=== PATIENT | female | born 1980 | race Caucasian/White ===

== ENCOUNTER 2016-09-03 01:06 | Emergency (ER) | payer MEDICAID ==
[~2016-09-03] VITALS: Ht 152.4 cm; Wt 72.6 kg
[~2016-09-03 01:06] MED LIST: PREN-96 PO
[2016-09-03] MEDS ORDERED: LORazepam 0.5 MG TAB ONE (01:13)
[2016-09-03] MEDS ORDERED: ONDANSETRON ODT 4 MG TAB PO ONE ×2 (01:17→01:30)
[2016-09-03] MEDS ORDERED: LORazepam 0.5 MG TAB PO ONE (01:30)
[2016-09-03 02:15] VITALS: BP 139/76
== END 2016-09-03 05:41 | disposition home or self-care (01) ==
LOC: EDBD 01:06 → ER 01:11
DX: F41.9 Anxiety disorder, unspecified (principal); Z91.14 Patient's other noncompliance with medication regimen; Z88.1 Allergy status to other antibiotic agents
CPT/HCPCS: 99284; Q0162

== ENCOUNTER 2018-01-19 21:52 | Emergency (ER) | payer MEDICAID ==
[~2018-01-19] VITALS: Ht 157.5 cm; Wt 50.8 kg
[2018-01-19 22:22] VITALS: BP 110/88
[2018-01-19 22:23] LABS: Urine Bacteria FEW /hpf (None Seen); Urine Blood Negative /uL (Negative); Urine Mucus FEW (None Seen); Urine Specific Gravity 1.007 (1.001-1.035); Urine WBC <1 /hpf (0 - 5)
[2018-01-20 00:01] LABS: Urine Pregnacy Test Negative (Negative)
[2018-01-20 00:10] LABS: Amphetamine Screen, Urine NEGATIVE (NEGATIVE); Barbiturate Scree,Urine NEGATIVE (NEGATIVE); Benzodiazephine Screen, Urine POSITIVE (NEGATIVE); Cannabinoid Screen, Urine NEGATIVE (NEGATIVE); Cocaine Screen, Urine NEGATIVE (NEGATIVE); Opiate Scree,Urine NEGATIVE (NEGATIVE); Phencyclidine Screen, Urine NEGATIVE (NEGATIVE)
== END 2018-01-19 23:47 | disposition home or self-care (01) ==
LOC: EDBD 21:52 → ER 21:52
DX: F41.0 Panic disorder [episodic paroxysmal anxiety] (principal); Z88.0 Allergy status to penicillin
CPT/HCPCS: 80307; 81001; 81025

== ENCOUNTER 2018-03-24 13:39 | Emergency (ER) | payer MEDICAID, OTHER ==
[~2018-03-24] VITALS: Ht 157.5 cm; Wt 49.9 kg
[2018-03-24] MEDS ORDERED: SODIUM CHLORIDE 0.9% 1,000 ML IV ONE ×2 (14:19)
[2018-03-24] MEDS ORDERED: chlordiazePOXIDE HCL 5 MG CAP PO ONE (14:30)
[2018-03-24] MEDS ORDERED: THIAMINE 100mg/ml INJ (200mg/2ml VIAL) IV ONE (14:30)
[2018-03-24 15:16] LABS: Basophils # (auto) 0 uL; Basophils % (auto) 0.4 % (0.0-2.0); Eosinophils # (auto) 0 uL; Eosinophils % (auto) 0.2 % (0.0-7.0); Hematocrit 40.1 % (36.0-46.0); Hemoglobin 13.9 g/dL (12.2-16.2); Lymphocytes # (auto) 1.3 uL; Lymphocytes % (auto) 15.3 % (10.0-50.0); Mean Corpuscular Hemoglobin 32.2 pg (28.0-32.0); Mean Corpuscular Hgb Conc. 34.7 g/dL (32.0-36.0); Mean Corpuscular Volume 92.9 fL (80.0-100.0); Monocytes # (auto) 0.6 uL; Monocytes % (auto) 6.6 % (0.0-12.0); Neutrophils # (auto) 6.8 uL; Neutrophils % (auto) 77.5 % (37.0-80.0); Nucleated Red Blood Cells % 0.1 %; Platelet Count (auto) 275 10^3/uL (140-450); Red Blood Cells 4.31 10^6/uL (4.0-5.20); Red Cell Distribution Width 12.1 % (11.8-14.3); White Blood Cell 8.7 10^3/uL (4.4-10.8)
[2018-03-24 15:19] LABS: Urine Bacteria FEW /hpf (None Seen); Urine Blood Negative /uL (Negative); Urine Specific Gravity 1.007 (1.001-1.035); Urine WBC 3 /hpf (0 - 5)
[2018-03-24 15:44] LABS: Albumin 4.2 g/dL (3.4-5.0); BUN/Creatinine Ratio 23.8; Bilirubin, Total 0.4 mg/dL (0.2-1.0); Calcium 8.8 mg/dL (8.5-10.1); Potassium 3.5 mmol/L (3.5-5.1); Total Protein 8.3 g/dL (6.4-8.2)
[2018-03-24 16:49] VITALS: BP 118/68
== END 2018-03-24 17:03 | disposition home or self-care (01) ==
LOC: ER 13:41 → MERGE 13:41 → ER 16:48
DX: F10.129 Alcohol abuse with intoxication, unspecified (principal); E86.0 Dehydration; M25.562 Pain in left knee; M25.561 Pain in right knee; M79.631 Pain in right forearm; Y90.9 Presence of alcohol in blood, level not specified; V43.52XA Car driver injured in collision with other type car in traffic accident, initial encounter; Y93.89 Activity, other specified; Y92.89 Other specified places as the place of occurrence of the external cause; Y99.8 Other external cause status
CPT/HCPCS: 36415; 70450; 71250; 72125; 73090; 73562; 80053; 80320; 81001; 84702; 85025; 96361; 96374; 99285; J3411

== ENCOUNTER 2018-06-09 07:06 | Emergency (ER) | payer MEDICAID ==
[~2018-06-09] VITALS: Ht 157.5 cm; Wt 49.9 kg
[2018-06-09 07:14] VITALS: BP 151/75
== END 2018-06-09 07:31 | disposition home or self-care (01) ==
LOC: EDBD 07:06 → ER 07:06
DX: F41.0 Panic disorder [episodic paroxysmal anxiety] (principal)

== ENCOUNTER 2018-12-11 17:06 | Emergency (ER) | payer MEDICAID ==
[~2018-12-11] VITALS: Ht 157.5 cm; Wt 54.4 kg
[2018-12-11 18:57] LABS: Urine Bacteria NONE SEEN /hpf (None Seen); Urine Blood Negative /uL (Negative); Urine Specific Gravity 1.006 (1.001-1.035); Urine WBC <1 /hpf (0 - 5)
[2018-12-11 19:00] LABS: Barbiturate Scree,Urine NEGATIVE (NEGATIVE); Benzodiazephine Screen, Urine NEGATIVE (NEGATIVE); Cannabinoid Screen, Urine NEGATIVE (NEGATIVE); Cocaine Screen, Urine NEGATIVE (NEGATIVE); Opiate Scree,Urine NEGATIVE (NEGATIVE); Phencyclidine Screen, Urine NEGATIVE (NEGATIVE)
[2018-12-11 19:09] LABS: Amphetamine Screen, Urine NEGATIVE (NEGATIVE)
[2018-12-11] MEDS ORDERED: LORazepam 2MG/ML-1ML VIAL IV ONE (22:15)
[2018-12-11] MEDS ORDERED: SODIUM CHLORIDE 0.9% 1,000 ML IV ONE (22:15)
[2018-12-12 01:00] VITALS: BP 125/72
== END 2018-12-12 01:27 | disposition home or self-care (01) ==
LOC: EDBD 17:06 → ER 17:06
DX: G92 Toxic encephalopathy (principal); F41.9 Anxiety disorder, unspecified; Z88.1 Allergy status to other antibiotic agents; F10.129 Alcohol abuse with intoxication, unspecified; Z79.899 Other long term (current) drug therapy
CPT/HCPCS: 80307; 81001; 96361; 96374; 99283; J2060; J7030

== ENCOUNTER 2019-08-04 19:40 | Emergency (ER) | payer MEDICAID ==
[~2019-08-04] VITALS: Ht 157.5 cm; Wt 49.9 kg
[2019-08-04 19:52] VITALS: BP 152/90
[2019-08-04] MEDS ORDERED: LORazepam 2MG/ML-1ML VIAL IV ONE (20:00)
[2019-08-04] MEDS ORDERED: SODIUM CHLORIDE 0.9% 1,000 ML IV ONE (20:00)
== END 2019-08-04 21:54 | disposition home or self-care (01) ==
LOC: EDBD 19:40 → ER 19:42
DX: F41.1 Generalized anxiety disorder (principal); R07.89 Other chest pain; Z88.1 Allergy status to other antibiotic agents
CPT/HCPCS: 93005

== ENCOUNTER 2022-02-06 17:33 | Emergency (ER) | payer MEDICAID ==
[~2022-02-06] VITALS: Ht 157.5 cm; Wt 45.4 kg
[2022-02-06] MEDS ORDERED: LORazepam 0.5 MG TAB PO ONE (18:00)
[2022-02-06 19:40] VITALS: BP 142/86
== END 2022-02-06 20:10 | disposition home or self-care (01) ==
LOC: ER 17:33 → EDBD 17:33 → ER 20:10
DX: F41.8 Other specified anxiety disorders (principal); Z79.899 Other long term (current) drug therapy; Z88.1 Allergy status to other antibiotic agents

== ENCOUNTER 2022-02-27 00:58 | Emergency (ER) | payer MEDICAID ==
[~2022-02-27] VITALS: Ht 152.4 cm; Wt 54.4 kg
[2022-02-27 07:38] VITALS: BP 115/64
== END 2022-02-27 07:38 | disposition home or self-care (01) ==
LOC: EDBD 00:58 → ER 00:58
DX: F10.129 Alcohol abuse with intoxication, unspecified (principal); Y90.8 Blood alcohol level of 240 mg/100 ml or more

== ENCOUNTER 2023-02-19 03:00 | Emergency (ER) | payer MEDICAID ==
[~2023-02-19] VITALS: Ht 157.5 cm; Wt 49.5 kg
[2023-02-19 03:47] LABS: Basophils # (auto) 0 10 ^3/uL (0-0.2); Basophils % (auto) 0.7 % (0.0-2.0); Eosinophils # (auto) 0 10 ^3/uL (0-0.8); Eosinophils % (auto) 0.6 % (0.0-7.0); Hematocrit 39.8 % (36.0-46.0); Hemoglobin 13.5 g/dL (12.2-16.2); Lymphocytes # (auto) 1.2 10 ^3/uL (0.4-5.4); Lymphocytes % (auto) 30.1 % (10.0-50.0); Mean Corpuscular Hemoglobin 33.2 pg (28.0-32.0); Mean Corpuscular Volume 97.8 fL (80.0-100.0); Monocytes # (auto) 0.4 10 ^3/uL (0-1.3); Monocytes % (auto) 11.1 % (0.0-12.0); Neutrophils # (auto) 2.3 10 ^3/uL (1.6-8.6); Neutrophils % (auto) 57.5 % (37.0-80.0); Nucleated Red Blood Cells % 0.1 %; Red Blood Cells 4.07 10^6/uL (4.0-5.20); Red Cell Distribution Width 13.2 % (11.8-14.3)
[2023-02-19 04:07] LABS: Calcium 8.1 mg/dL (8.5-10.1); Potassium 3.2 mmol/L (3.5-5.1)
[2023-02-19 04:16] LABS: BUN/Creatinine Ratio 13.7 (10.0-20.0)
[2023-02-19] MEDS ORDERED: LORazepam 2MG/ML-1ML VIAL IV ONE (06:45)
[2023-02-19] MEDS ORDERED: THIAMINE 100mg/ml INJ (200mg/2ml VIAL) IV ONE (07:30)
[2023-02-19] MEDS ORDERED: SODIUM CHLORIDE 0.9% 1,000 ML IV ONE ×2 (07:30)
[2023-02-19] MEDS ORDERED: POTASSIUM EFFERVESENT TAB 25 MEQ PO ONE (09:30)
[2023-02-19 11:10] VITALS: BP 112/77
== END 2023-02-19 11:14 | disposition home or self-care (01) ==
LOC: EDBD 03:00 → ER 03:00
DX: F41.0 Panic disorder [episodic paroxysmal anxiety] (principal); F10.129 Alcohol abuse with intoxication, unspecified; Y90.8 Blood alcohol level of 240 mg/100 ml or more
CPT/HCPCS: 36415; 80048; 80320; 85025; 96361; 96374; 96375; 99284; J2060; J3411; J7030

== ENCOUNTER 2023-09-13 21:07 | Emergency (ER) | payer MEDICAID ==
[~2023-09-13] VITALS: Ht 157.5 cm; Wt 47.3 kg
[2023-09-13 21:26] LABS: Basophils # (auto) 0 10 ^3/uL (0-0.2); Eosinophils # (auto) 0 10 ^3/uL (0-0.8); Eosinophils % (auto) 0.2 % (0.0-7.0); Neutrophils % (auto) 77.5 % (37.0-80.0); Nucleated Red Blood Cells % 0.1 %; White Blood Cell 7.3 10^3/uL (4.4-10.8)
[2023-09-13 21:28] LABS: Basophils % (auto) 0.3 % (0.0-2.0); Hemoglobin 12.9 g/dL (12.2-16.2); Lymphocytes # (auto) 0.9 10 ^3/uL (0.4-5.4); Lymphocytes % (auto) 11.9 % (10.0-50.0); Mean Corpuscular Hemoglobin 34.8 pg (28.0-32.0); Mean Corpuscular Volume 102.1 fL (80.0-100.0); Monocytes # (auto) 0.7 10 ^3/uL (0-1.3); Monocytes % (auto) 10.1 % (0.0-12.0); Neutrophils # (auto) 5.6 10 ^3/uL (1.6-8.6); Red Blood Cells 3.72 10^6/uL (4.0-5.20); Red Cell Distribution Width 14.2 % (11.8-14.3)
[2023-09-13] MEDS ORDERED: LORazepam 2MG/ML-1ML VIAL IM ONE (21:30)
[2023-09-13 21:35] LABS: Chloride 103 mmol/L (98-107); Potassium 3.4 mmol/L (3.5-5.1); Sodium 135 mmol/L (136-145)
[2023-09-13 21:36] LABS: Anion Gap 10 (5-15); Calcium 9.5 mg/dL (8.5-10.1); Carbon Dioxide 22 mmol/L (20-30)
[2023-09-13 21:41] LABS: BUN/Creatinine Ratio 11.7 (10.0-20.0); Blood Urea Nitrogen 7 mg/dL (9-23); Glucose 96 mg/dL (74-106)
[2023-09-13] MEDS ORDERED: LORazepam MDV 2MG/ML 10 ML IV ONE (21:55)
[2023-09-13] MEDS ORDERED: POTASSIUM EFFERVESENT TAB 25 MEQ PO ONE (23:45)
[2023-09-14 00:07] VITALS: BP 136/90; PULSE 116; RESP 18; TEMP 98.2; O2SAT 96
== END 2023-09-14 00:20 | disposition home or self-care (01) ==
LOC: ER 21:07
DX: F41.9 Anxiety disorder, unspecified (principal); R07.89 Other chest pain; Z88.1 Allergy status to other antibiotic agents
CPT/HCPCS: 36415; 80048; 83880; 84484; 85025; 93005; 96372; 99284; J2060

== ENCOUNTER 2023-12-11 13:52 | Emergency (ER) | payer MEDICAID | END 2023-12-11 14:20 | disposition left against medical advice (07) | LOC: EDBD 13:52 → ER 13:52 | DX: F41.9 Anxiety disorder, unspecified (principal); Z53.21 Procedure and treatment not carried out due to patient leaving prior to being seen by health care provider ==

== ENCOUNTER 2023-12-29 01:13 | Emergency (ER) | payer MEDICAID ==
[~2023-12-29] VITALS: Ht 157.5 cm; Wt 50.0 kg
[2023-12-29] MEDS: METOCLOPRAMIDE HCL 5MG/ml INJ 2ml VIAL IV ONE (02:29)
[2023-12-29] MEDS ORDERED: ZOFR4T PO (02:46)
[2023-12-29 03:45] VITALS: BP 139/93; PULSE 72; RESP 17; TEMP 98.4; O2SAT 98
== END 2023-12-29 02:50 | disposition home or self-care (01) ==
LOC: ER 01:13 → EDBD 01:13 → EDUNIT# 01:13 → ER 02:50
DX: S06.0XAA Concussion with loss of consciousness status unknown, initial encounter (principal); F41.9 Anxiety disorder, unspecified; Z88.1 Allergy status to other antibiotic agents; Z79.899 Other long term (current) drug therapy; W01.198A Fall on same level from slipping, tripping and stumbling with subsequent striking against other object, initial encounter; Y93.89 Activity, other specified; Y92.89 Other specified places as the place of occurrence of the external cause; Y99.8 Other external cause status
CPT/HCPCS: 70450; 96374; 99285; J2765

== ENCOUNTER 2025-03-06 00:01 | Emergency (ER) | payer MEDICAID ==
[~2025-03-06 00:01] MED LIST changes: +CEPH250C PO; +IBUP-1456 PO; +LORA-655 PO; +TRIA0.5O2 TOP; +ZOFR4T PO
--- NOTE | 2025-03-06 00:08 | ED.PDOC ---
HPI Allergic reaction Time Seen by MD: 00:06 Primary Care Provider: MALKA Velasquez Notes: Nurses Notes, Medications, Allergies Allergies: Coded Allergies: Ampicillin (Verified Allergy, Unknown, dizzyness, 02/06/22) "feel like I'm going to pass out" Home Meds Active Scripts Lorazepam (Ativan) 0.5 Mg Tab, 1 TAB PO BID PRN, #20 TAB Prov:KRIS HARDEN MD 05/12/24 Triamcinolone Acetonide (Triamcinolone Acetonide) 0.5 % Oin, 1 APPLIC TOP BID, #60 GRAMS Prov:KRIS HARDEN MD 05/12/24 Cephalexin (KEFLEX CAPSULE) 250 Mg Cp, 1 CAP PO QID, #28 CAP Prov:KRIS HARDEN MD 05/12/24 Ibuprofen (Ibuprofen) 800 Mg Tab, 1 TAB PO TID, #30 TAB 0 Refills Prov:KRIS HARDEN MD 05/12/24 Ondansetron Odt 4MG Tab (ZOFRAN PO) 4 Mg Tb, 4 MG PO Q6HP PRN, #20 TAB ODT TAB-DISSOLVE IN MOUTH, THEN SWALLOW Prov:ARA HUNT DO 12/29/23 Reported Medications Vit W/ Ferrous Fumara ( One Daily) Daily Tab, 1 TAB PO DAILY, #90 TAB 3 Refills 08/07/14 Information Source: Patient Past Medical History PAST MEDICAL HISTORY: Anxiety, HTN Surgical History: Denies all surgeries [employer] History: No Pertinent [employer] History Family History Family History: Family hx of DM, Family hx of HTN Family History (Other): Anxiety Social History Smoker: Non-Smoker Alcohol: Occasionally Drugs: Denies Drug Use Lives In: Home Constitutional: denies: chills, diaphoresis, fatigue, fever, malaise, sweats, weakness, others EENTM: denies: blurred vision, double vision, ear bleeding, ear discharge, ear drainage, ear pain, ear ringing, eye pain, eye redness, hearing loss, mouth pain, mouth swelling, nasal discharge, nose bleeding, nose congestion, nose pain, photophobia, tearing, throat pain, throat swelling, voice changes, others Respiratory: denies: cough, hemoptysis, orthopnea, SOB at rest, shortness of breath, SOB with excertion, stridor, wheezing, others Cardiovascular: denies: chest pain, dizzy spells, diaphoresis, Dyspnea on exertion, edema, irregular heart beat, left arm pain, lightheadedness, palpitations, PND, syncope, others Gastrointestinal: denies: abdomen distended, abdominal pain, blood streaked bowels, constipated, diarrhea, dysphagia, difficulty swallowing, hematemesis, melena, nausea, poor appetite, poor fluid intake, rectal bleeding, rectal pain, vomiting, others Genitourinary: denies: abnormal vagina bleeding, burning, dyspareunia, dysuria, flank pain, frequency, hematuria, incontinence, pain, , vagina discharge, urgency, others Neurological: denies: dizziness, fainting, headache, left sided numbness, left sided weakness, numbness, paresthesia, pre-existing deficit, right sided numbness, right sided weakness, seizure, speech problems, tingling, tremors, weakness, others Musculoskeletal: denies: back pain, gout, joint pain, joint swelling, muscle pain, muscle stiffness, neck pain, others Integumetry: reports: rash; denies: bruises, change in color, change in hair/nails, dryness, laceration, lesions, lumps, wounds, others Allergic/Immunocompromised: reports: Hives, Itching; denies: Difficulty Healing, Frequent Infections, others Hematologic/Lymphatic: denies: anemia, blood clots, easy bleeding, easy bruising, swollen glands, others Endocrine: denies: excessive hunger, excessive sweating, excessive thirst, excessive urination, flushing, intolerance to cold, intolerance to heat, unexplained weight gain, unexplained weight loss, others Psychiatric: denies: anxiety, bipolar disorder, depression, hopeless, panic disorder, schizophrenia, sleepless, suicidal, others Physical Exam General Appearance: No Apparent Distress, Normal HEENT: Normal ENT Inspection, Pharynx Normal, TMs Normal Neck: Full Range of Motion, Non-Tender Respiratory: Chest Non-Tender, Lungs Clear, No Accessory Muscle Use, No Respiratory Distress, Normal Breath Sounds Cardiovascular: No Edema, No JVD, No Murmur, No Gallop, Normal Peripheral Pulses, Regular Rate/Rhythm Breast Exam: Deferred Gastrointestinal: No Organomegaly, Non Tender, No Pulsatile Mass, Normal Bowel Sounds, Soft Genitalia: Deferred Pelvic: Deferred Rectal: Deferred Extremities: Normal capillary refill, Normal inspection, Normal range of motion, Non-tender, No pedal edema Musculoskeletal : Apperance: Normal Neurologic: Alert, No Motor Deficits, Normal Affect, Normal Mood, No Sensory Deficits Cerebellar Function: Normal Reflexes: Normal Skin: Dry, Normal Color, Warm Lymphatic: No Adenopathy Was a procedure done? Was a procedure done?: No Differential diagnosis (all) Differential Diagnosis: Anaphylaxis, Angioedema, Bronchospasm, Contact Dermatitis, Hypotension, Shock, Urticaria Time of 1ST Reevaluation: 00:07 Reevaluation 1ST: Unchanged Patient Education/Counseling: Diagnosis, Treatment, Prognosis, Need For Follow Up Family Education/Counseling: Diagnosis, Treatment, Prognosis, Need For Follow Up Departure 1 Departure Time of Disposition: 00:43 Impression: Primary Impression: Patient left without being seen Disposition: 07 LEFT WITHOUT BEING TRIAGED Condition: Stable Discharged With: Self Critical Care Note Critical Care Time?: No Stability Stability form required: CACHORRO Parker Mar 06, 2025 00:08
== END 2025-03-06 00:43 | disposition left against medical advice (07) ==
LOC: ER 00:01
DX: R68.89 Other general symptoms and signs (principal); F10.90 Alcohol use, unspecified, uncomplicated; F41.9 Anxiety disorder, unspecified; I10 Essential (primary) hypertension; Z88.0 Allergy status to penicillin; Z79.1 Long term (current) use of non-steroidal anti-inflammatories (NSAID); Z79.899 Other long term (current) drug therapy; Y90.9 Presence of alcohol in blood, level not specified